=== PATIENT | male | born 1960 | race Caucasian/White ===

== ENCOUNTER 2016-06-18 21:45 | Emergency (ER) | payer OTHER ==
[2016-06-18 22:33] VITALS: BP 153/89; PULSE 64; RESP 20; TEMP 96.5; O2SAT 95
== END 2016-06-18 23:06 | disposition home or self-care (01) | DRG 313 ==
LOC: ED 21:45
DX: R07.89 Other chest pain (principal); S06.9X1A Unspecified intracranial injury with loss of consciousness of 30 minutes or less, initial encounter; W10.9XXA Fall (on) (from) unspecified stairs and steps, initial encounter; R40.2412 Glasgow coma scale score 13-15, at arrival to emergency department
CPT/HCPCS: 71101; 99282; 99283

== ENCOUNTER 2016-11-11 18:43 | Emergency (ER) | payer OTHER ==
[2016-11-11 19:03] VITALS: BP 138/78; PULSE 71; RESP 28; TEMP 98.6; O2SAT 94
== END 2016-11-11 19:43 | disposition home or self-care (01) | DRG 57 ==
LOC: ED 18:43
DX: G20 Parkinson's disease (principal)
CPT/HCPCS: 99282; 99283

== ENCOUNTER 2017-02-04 15:59 | Emergency (ER) | payer OTHER ==
[2017-02-04 16:48] VITALS: RESP 16; TEMP 96.8
[2017-02-04] MEDS: SODIUM CHLORIDE 0.9% 1000ML 1,000 ML IV SCH ×2 (16:55→18:05)
[2017-02-04 16:59] LABS: BASOPHILS % (AUTO) 1 % (0-3); EOSINOPHILS % (AUTO) 3 % (0-9); HEMATOCRIT 46 % (39-53); MEAN CORPUSCULAR HGB CONC 33.7 gm/dl (32.0-36.0); MEAN CORPUSCULAR VOLUME 86 fL (80-100); MONOCYTES % (AUTO) 6.3 % (0-12); NEUTROPHILS % (AUTO) 66.2 % (37-80)
[2017-02-04 17:10] LABS: CALCIUM 9.4 mg/dl (8.5-10.1); POTASSIUM 3.7 mMol/L (3.5-5.1)
[2017-02-04] MEDS ORDERED: SODIUM CHLORIDE 0.9% FLUSH 10 ML SOL IV PRN (17:16)
[2017-02-04 17:49] VITALS: BP 141/87; PULSE 48; O2SAT 98
[2017-02-04] MEDS ORDERED: CIPROFLOXACIN HCL 500 MG TAB PO SCH (18:15)
[2017-02-04] MEDS ORDERED: LEVOFLOXACIN 500 MG TAB PO ONE (18:40)
[2017-02-04] MEDS ORDERED: LEVOFLOXACIN 500 MG TAB ONE (18:41)
== END 2017-02-04 19:06 | disposition home or self-care (01) | DRG 392 ==
LOC: ED 15:59
DX: A05.9 Bacterial foodborne intoxication, unspecified (principal)
CPT/HCPCS: 74020; 80048; 85025; 99284

== ENCOUNTER 2018-02-11 11:13 | Emergency (ER) | payer OTHER, MEDICARE ==
[2018-02-11] MEDS ORDERED: INSULIN HUMAN REGULAR 100 U/ML SOL SUBCUT PRN (11:41)
[2018-02-11] MEDS ORDERED: INSULIN HUMAN REGULAR 100 U/ML SOL ONE (11:56)
[2018-02-11 12:16] LABS: BILIRUBIN,TOTAL 0.5 mg/dl (0.2-1.0); CALCIUM 9.3 mg/dl (8.5-10.1); CARBON DIOXIDE 24.9 mEq/L (21-32); CREATININE 1.2 mg/dl (0.80-1.30); POTASSIUM 4.1 mMol/L (3.5-5.1); TOTAL PROTEIN 8.5 gm/dl (6.4-8.2)
[2018-02-11 12:17] LABS: ALBUMIN 3.7 gm/dl (3.4-5.0)
[2018-02-11 12:33] LABS: APPEARANCE,URINE CLEAR; COLOR,URINE YELLOW; PH,URINE 5.5
[2018-02-11 12:34] LABS: BILIRUBIN,URINE NEGATIVE (NEGATIVE); GLUCOSE, URINE (UA) 2+ (NEGATIVE); KETONES,URINE NEGATIVE (NEGATIVE); LEUKOCYTE ESTERASE ,URINE NEGATIVE (NEGATIVE); NITRATE,URINE NEGATIVE (NEGATIVE); OCCULT BLOOD,URINE NEGATIVE (NEG-TRACE); UROBILINOGEN,URINE 0.2 (0.2-1.0 EU)
[2018-02-11 12:51] LABS: BACTERIA TRACE (< 1+); CRYSTALS NEGATIVE (0-3 AVE/HPF); EPITHELIAL CELLS 0-1 (SQUAMOUS); RBC,URINE NEGATIVE (0-3AV/HPF); WBC,URINE 0-1 (0-5AV/HPF)
[2018-02-11] MEDS ORDERED: SODIUM CHLORIDE 0.9% 1000ML 1,000 ML IV NR (13:00)
[2018-02-11 13:26] VITALS: TEMP 98.1
[2018-02-11 13:33] LABS: BASOPHILS % (AUTO) 1 % (0-3); EOSINOPHILS % (AUTO) 2 % (0-9); HEMATOCRIT 47 % (39-53); HEMOGLOBIN 15.4 gm/dl (13.5-17.7); MEAN CORPUSCULAR HEMOGLOBIN 27.4 pg (27.0-32.0); MEAN CORPUSCULAR HGB CONC 32.7 gm/dl (32.0-36.0); MEAN CORPUSCULAR VOLUME 84 fL (80-100); NEUTROPHILS % (AUTO) 68.9 % (37-80)
[2018-02-11 13:45] LABS: HEMOGLOBIN A1C 8.7 % (4.8-6.0)
[2018-02-11 15:12] VITALS: BP 147/84; PULSE 73; RESP 16; O2SAT 95
== END 2018-02-11 15:00 | disposition home or self-care (01) | DRG 639 ==
LOC: ED 11:13
DX: E11.65 Type 2 diabetes mellitus with hyperglycemia (principal); Z79.4 Long term (current) use of insulin; R79.89 Other specified abnormal findings of blood chemistry; K76.0 Fatty (change of) liver, not elsewhere classified
CPT/HCPCS: 36415; 74177; 80053; 81001; 82009; 82962; 83036; 85025; 96365; 96372; 99284; 99285; J1815; Q9967

== ENCOUNTER 2018-05-21 15:56 | Emergency (ER) | payer OTHER ==
[2018-05-21 16:05] VITALS: RESP 20
[2018-05-21] MEDS ORDERED: SODIUM CHLORIDE 0.9% 1000ML 1,000 ML IV ONE (16:25)
[2018-05-21] MEDS ORDERED: TDAP VACCINE 0.5 ML SUS IM ONE ×2 (16:30→17:05)
[2018-05-21] MEDS ORDERED: FENTANYL 100MCG/2ML SOL IV ONE (17:11)
[2018-05-21] MEDS ORDERED: FENTANYL 100MCG/2ML SOL ONE (17:16)
[2018-05-21] MEDS ORDERED: ONDANSETRON HCL 4 MG/2 ML SOL IV PRN (17:18)
[2018-05-21] MEDS ORDERED: NOVOLOG FLEXPEN SC ONE (17:47)
[2018-05-21 17:52] VITALS: BP 126/73; PULSE 51; TEMP 97.9; O2SAT 89
[2018-05-21] MEDS ORDERED: NOVOLOG FLEXPEN SC SCH (21:00)
== END 2018-05-21 18:17 | disposition short-term general hospital (02) | DRG 999 ==
LOC: ED 15:56
DX: W00.9XXA Unspecified fall due to ice and snow, initial encounter (principal); E11.9 Type 2 diabetes mellitus without complications; I10 Essential (primary) hypertension; S82.401A Unspecified fracture of shaft of right fibula, initial encounter for closed fracture
CPT/HCPCS: 29515; 73590; 73610; 82962; 90471; 90715; 96365; 96372; 96374; 99285; J3010; J1815

== ENCOUNTER 2018-05-31 10:22 | Outpatient (CLI) | payer OTHER ==
[2018-05-21 17:52] VITALS: O2SAT 89
== END 2018-05-31 10:23 | disposition home or self-care (01) | DRG 561 ==
LOC: CONVCARE 10:22
PROVIDERS: ATTEND Orthopaedic Surgery
DX: S82.61XD Displaced fracture of lateral malleolus of right fibula, subsequent encounter for closed fracture with routine healing (principal)
CPT/HCPCS: 73610

== ENCOUNTER 2018-06-07 10:36 | Outpatient (CLI) | payer OTHER ==
[2018-05-21 17:52] VITALS: O2SAT 89
== END 2018-06-07 10:37 | disposition home or self-care (01) | DRG 561 ==
LOC: CONVCARE 10:36
PROVIDERS: ATTEND Orthopaedic Surgery
DX: Z47.89 Encounter for other orthopedic aftercare (principal); Z98.890 Other specified postprocedural states
CPT/HCPCS: 73610

== ENCOUNTER → 2018-06-21 | Outpatient (CLI) | payer OTHER ==
[2018-05-21 17:52] VITALS: O2SAT 89
== END | disposition home or self-care (01) | DRG 561 ==
LOC: RAD 08:00
PROVIDERS: ATTEND Orthopaedic Surgery
DX: S82.63XD Displaced fracture of lateral malleolus of unspecified fibula, subsequent encounter for closed fracture with routine healing (principal)
CPT/HCPCS: 73610

== ENCOUNTER 2018-07-19 09:58 | Outpatient (CLI) | payer OTHER ==
[2018-05-21 17:52] VITALS: O2SAT 89
== END 2018-07-19 09:59 | disposition home or self-care (01) | DRG 561 ==
LOC: RAD 09:58
PROVIDERS: ATTEND Orthopaedic Surgery
DX: S82.61XD Displaced fracture of lateral malleolus of right fibula, subsequent encounter for closed fracture with routine healing (principal); Z98.890 Other specified postprocedural states
CPT/HCPCS: 73610